=== PATIENT | female | born 2000 | race Caucasian/White ===

== ENCOUNTER 2022-02-21 14:00 | Emergency (ER) | payer MEDICAID ==
[~2022-02-21] VITALS: Ht 157.5 cm; Wt 59.5 kg
[2022-02-21 14:12] VITALS: BP 104/68
[2022-02-21] MEDS ORDERED: PENICILLIN G BENZATHINE 2,400,000 UNIT/4 ML SYRINGE IM ONE (15:05)
== END 2022-02-21 15:53 | disposition home or self-care (01) ==
LOC: ER 14:02
DX: J02.9 Acute pharyngitis, unspecified (principal)
CPT/HCPCS: 87081; 87880; 96372; 99283; J0561

== ENCOUNTER 2023-04-26 18:06 | Emergency (ER) | payer MEDICAID ==
[~2023-04-26] VITALS: Ht 157.5 cm; Wt 56.0 kg
[2023-04-26 18:37] VITALS: BP 121/75; PULSE 77; RESP 18; TEMP 97.7; O2SAT 99
[2023-04-26] MEDS ORDERED: HYDROcodone/acetaminophen 10/325mg tab PO ONE (19:35)
[2023-04-26] MEDS ORDERED: gabapentin 300mg capsule PO ONE (19:35)
[2023-04-26] MEDS ORDERED: IBUP-1986 PO (19:37)
[2023-04-26] MEDS ORDERED: GABA300C PO (19:37)
== END 2023-04-26 20:00 | disposition home or self-care (01) ==
LOC: ER 18:07
DX: K08.89 Other specified disorders of teeth and supporting structures (principal); K90.49 Malabsorption due to intolerance, not elsewhere classified; R68.84 Jaw pain
CPT/HCPCS: 99283

== ENCOUNTER 2025-02-05 14:41 | Emergency (ER) | payer MEDICAID ==
[~2025-02-05] VITALS: Ht 157.5 cm; Wt 56.7 kg
[~2025-02-05 14:41] MED LIST: GABA300C PO; IBUP-1986 PO
[2025-02-05 14:49] VITALS: BP 119/81; PULSE 84; RESP 15; TEMP 98.5; O2SAT 98
--- NOTE | 2025-02-05 15:01 | Physician Documentation ---
History of Present Illness ~ Chief Complaint: Breast pain Stated Complaint: BREAST PAIN Time Seen by MD: 14:54 Primary Medical Doctor: [facility] The patient is Today with complaints of pain and induration of her left breast on the lateral inferior portion. Patient states she is but has been trying to wean down and will be shortly weaning her infant off. Patient de nies any fevers or chills. She has no new or other concern or complaint at this time. She states she has had mastitis in the past requiring oral antibiotics. Tetanus within 5 years?: Yes Medication Reconciliation Allergies: Coded Allergies: No Known Allergies (Unverified , 02/21/22) Scheduled Gabapentin (Neurontin), 1 CAP PO Q8H Ibuprofen (Ibuprofen), 1 TAB PO Q8H Past Medical History Past Medical History: No Pertinent History Past Surgical History: no surgical history Alcohol Use: None Drug Use: none Review of Systems Constitutional: Denies: chills, fever, weakness Eyes: Denies: pain, blurred vision ENT: Denies: ear pain, nose pain, throat pain, mouth pain Respiratory: Denies: cough, shortness of breath Cardiovascular: Denies: chest pain, palpitations Gastrointestinal: Denies: abdominal pain, nausea, vomiting Genitourinary: Denies: burning, dysuria Female Genitalia: Denies: vaginal discharge, pelvic pain Neurological: Denies: headache, dizziness Musculoskeletal: Denies: pain, swelling Integumentary: Denies: rash, lesions Allergic/Immunologic: Denies: hives, itching Hematologic/Lymphatic: Denies: no symptoms reported Psychiatric: Denies: depression, anxiety Physical Exam Vital Signs: Temperature: 98.5, Source: Temporal, Heart Rate: 84, Respiratory Rate: 15, BP: 119/81, Pulse Oximetry: 98, Weight: 56.700 General Appearance General: Awake and Alert, no acute distress. HEENT: Conjunctiva pink, Sclera clear, Mucus Membranes moist. Neck: Supple without masses and tenderness. Resp: Unlabored. Lungs clear to auscultation bilaterally. Heart: Regular Rate and rhythm, normal S1 and S2 without murmur, rub or gallop. Breast: Patient on exam does have induration and mild erythema and significant tenderness to palpation to the lateral left breast. Extremities: No cyanosis,clubbing or edema. Skin: Warm and Dry. Progress Results/Orders Results/Orders Vital Signs 02/05/25 14:49 Temp 98.5 Pulse 84 Resp 15 B/P (MAP) 119/81 Pulse Ox 98 Medical Decision Making Findings The patient is Today with complaints of pain and induration of her left breast on the lateral inferior portion. Patient states she is but has been trying to wean down and will be shortly weaning her infant off. Patient denies any fevers or chills. She has no new or other concern or complaint at this time. She states she has had mastitis in the past requiring oral antibiotics. Patient was strongly advised to pump and dump as well as continue increase and pumping dump the rest as much as possible over the next 3-7 days. Patient will also be given prescription of Bactrim DS one tab twice a day for 10 days to be taken by mouth as prescribed. Dose of Bactrim given in the ED today. Patient will follow up with primary care in 2-5 days if no better as needed sooner. Return to ED with any worsening, concerning or changing symp toms. Departure Disposition: HOME / SELF CARE / HOMELESS Impression: Primary Impression: Mastitis Condition: Stable Discharge Instructions: Mastitis Additional Instructions: Patient was strongly advised to pump and dump as well as continue increase and pumping dump the rest as much as possible over the next 3-7 days. Patient will also be given prescription of Bactrim DS one tab twice a day for 10 days to be taken by mouth as prescribed. Dose of Bactrim given in the ED today. Patient will follow up with primary care in 2-5 days if no better as needed sooner. Return to ED with any worsening, concerning or changing symptoms. Referrals: NO PRIMARY CARE PROVIDER (PCP) Prescriptions Sulfamethoxazole/Trimethoprim (Bactrim Ds Tablet) 800 Mg-160 Mg Tablet 1 TAB PO Q12H for 10 Days, #20 TAB Prov: KIRTI DE LA PAZ 02/05/25 Signature Scribe Signature: No scribe Attestation: No scribe KIRTI DE LA PAZ February 05, 2025 15:01
[2025-02-05] MEDS ORDERED: SULF1TAB49 PO (15:06)
[2025-02-05] MEDS: sulfamethoxazole/trimethoprim DS (800/160mg) tablet PO ONE (15:30)
== END 2025-02-05 15:32 | disposition home or self-care (01) ==
LOC: ER 14:42
DX: N61.0 Mastitis without abscess (principal); Z79.899 Other long term (current) drug therapy
CPT/HCPCS: 99283

== ENCOUNTER 2025-06-06 15:02 | Emergency (ER) | payer MEDICAID, OTHER ==
[~2025-06-06] VITALS: Ht 154.9 cm; Wt 54.5 kg
[2025-06-06 15:10] VITALS: BP 111/68; PULSE 85; RESP 16; TEMP 98.4; O2SAT 99
--- NOTE | 2025-06-06 16:17 | RADIOLOGY REPORT ---
EXAM: DI ANKLE, COMPLETE(3VW MIN) INDICATION: Swelling, pain TECHNIQUE: 3 views of the right ankle COMPARISON: None FINDINGS/IMPRESSION: No radiographic evidence of an acute osseous abnormality. There is no acute fracture, osseous malalignment, or aggressive focal osseous lesion. Lateral malleolar soft tissue swelling. No widening of the distal tibial fibular interval to suggest syndesmotic injury.
[2025-06-06] MEDS ORDERED: CEPH-585 PO (16:38)
[2025-06-06] MEDS: ibuprofen tablet 400 MG TABLET PO ONE (16:38)
--- NOTE | 2025-06-06 16:39 | Physician Documentation ---
History of Present Illness ~ Chief Complaint: Ankle pain Stated Complaint: SWOLLEN R ANKLE Time Seen by MD: 15:12 Primary Medical Doctor: [facility] HPI Patient has a 24-year-old female that presents to the emergency department for swelling of the right ankle acutely. 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 Patient denies any injury does not know what happened reports that she woke up like that and it became progressively worse while here at work. Tetanus witin 5 years: Yes Medication Reconciliation Allergies: Coded Allergies: No Known Allergies (Unverified , 06/06/25) Scheduled Gabapentin (Neurontin), 1 CAP PO Q8H Ibuprofen (Ibuprofen), 1 TAB PO Q8H Past Medical History Past Medical History: No Pertinent History Past Surgical History: no surgical history Alcohol Use: None Drug Use: none Review of Systems ROS As stated above in the HPI, otherwise all systems are reviewed and negative. Physical Exam Vital Signs: Temperature: 98.4, Source: Temporal, Heart Rate: 85, Respiratory Rate: 16, BP: 111/68, Pulse Oximetry: 99, Weight: 54.550 Oxygen Flow Rate: 0 Physical Exam VITALS: Reviewed and as above. GENERAL: Alert, no apparent distress. HEENT: Normocephalic, atraumatic, PERRL, EOMI, dry mucosa, no erythema RESPIRATORY: Lungs clear, normal breath sounds, no respiratory distress. CHEST: No accessory muscle use, no retractions CV: Regular rate, rhythm, no edema, no murmur, No: JVD GI: Soft, non-tender, bowels sounds present, no rebound, guarding, or rigidity BACK: No CVA tenderness, or swelling MUSCULOSKELETAL No deformities, no edema, tender with range of motion. SKIN: Warm and dry, erythema and swelling noted to the lateral aspect of the right ankle. NEURO: Oriented x4, No motor or sensory deficit PSYCH: Normal mood and affect, no agitation Progress Results/Orders Results/Orders Orders - LUPE CROSSP Ankle, Complete(3vw Min) (06/06/25 15:47) General Nursing Order (06/06/25 16:11) Completed Orders - LUPE CROSS [employer] Ankle, Complete(3vw Min) (06/06/25 15:47) Vital Signs 06/06/25 15:10 Temp 98.4 Pulse 85 Resp 16 B/P (MAP) 111/68 Pulse Ox 99 O2 Flow Rate 0 Medical Decision Making Findings This patient presents with initial presentation of local erythema, warmth, swelling concerning for cellulitis. Sensitivity/pain to light touch around the erythematous area. No lymphangitic spread visible and no fluid pockets or fluctuance concerning for abscess noted. Low concern for osteomyelitis or DVT. No immune compromise, bullae, pain out of proportion, or rapid progression concerning for necrotizing fasciitis. Patient to be discharged home with keflex with follow up with their PMD. Patient will follow up with her primary care provider. Patient will return to the emergency department with a worsening or recurrent symptoms i.e. increased swelling increased pain lymphatic spread i nability to ambulate on that foot fevers chills or any other concerning symptoms that we discussed here today. This is currently so Keflex was the most appropriate choice at this time. General Diff Dx:Considerations: Include: Abrasion, Contusion, Fracture, Hematoma, Laceration, Malunion, Neurovascular injury, Open fracture, Sprain, Ulcer, Other Ankle Diff Dx:Considerations: Include: Abrasion, Arthritis, Contusion, DJD, Fracture-metatarsal, Fracture-fibula, Fracture-tarsal, Fracture-tibia, Gout, Hematoma, Laceration, Malunion, Neurovascular injury, Nonunion, Open fracture, Osteomyelitis, Rheumatoid arthritis, Sprain, Septic, Ulcer, Other Departure Disposition: 01 HOME / SELF CARE / HOMELESS Impression: Primary Impression: Abscess Additional Impressions: Bug bite Edema Pain Discharge Instructions: Abscess, Care After Additional Instructions: This patient presents with initial presentation of local erythema, warmth, swelling concerning for cellulitis. Sensitivity/pain to light touch around the erythematous area. No lymphangitic spread visible and no fluid pockets or fluctuance concerning for abscess noted. Low concern for osteomyelitis or DVT. No immune compromise, bullae, pain out of proportion, or rapid progression concerning for necrotizing fasciitis. Patient to be discharged home with keflex with follow up with their PMD. Patient will follow up with her primary care provider. Patient will return to the emergency department with a worsening or recurrent symptoms i.e. increased swelling increased pain lymphatic spread inability to ambulate on that foot fevers chills or any other concerning symptoms that we discussed here today. This is currently so Keflex was the most appropriate choice at this time. Referrals: NO PRIMARY CARE PROVIDER (PCP) Prescriptions Cephalexin*Monohydrate* (Keflex*) 500 Mg Capsule 1 CAP PO QID for 7 Days, #28 CAP Prov: LUPE CROSS 06/06/25 Education Educated: Patient Educated regarding: diagnosis, treatment, need for follow up Signature Scribe Signature: A Attestation: Scribed for Lupe Cross by RAJI Suarez . 06/06/25 16:39 LUPE CROSS Jun 06, 2025 16:39
== END 2025-06-06 16:46 | disposition home or self-care (01) ==
LOC: ER 15:02
DX: L02.415 Cutaneous abscess of right lower limb (principal); R60.9 Edema, unspecified; Z79.899 Other long term (current) drug therapy; W57.XXXA Bitten or stung by nonvenomous insect and other nonvenomous arthropods, initial encounter; Y93.89 Activity, other specified; Y92.89 Other specified places as the place of occurrence of the external cause; Y99.8 Other external cause status
CPT/HCPCS: 73610; 99284

== ENCOUNTER 2025-08-15 12:59 | Emergency (ER) | payer OTHER ==
[~2025-08-15] VITALS: Ht 154.9 cm; Wt 59.1 kg
[2025-08-15 13:03] VITALS: BP 112/75; PULSE 84; RESP 18; TEMP 97.2; O2SAT 97
--- NOTE | 2025-08-15 14:13 | RADIOLOGY REPORT ---
DI LUMBAR SPINE LIMITED, HISTORY: Fall COMPARISON: None TECHNICAL DATA: Frontal and lateral views were obtained of the lumbar spine. FINDINGS: There are 5 lumbar type vertebral bodies. Lumbar curvature is within normal limits. There is no spondylolisthesis. Vertebral body heights are maintained. Disk heights are normal. The facet joints appear normal. The sacroiliac joints are symmetric. Paraspinal soft tissues are within normal limits. IMPRESSION: No acute fracture or dislocation of the lumbar spine.
--- NOTE | 2025-08-15 14:13 | RADIOLOGY REPORT ---
DI HIP UNILATERAL 2-3 VIEWS, INDICATION: Fall LEFT TECHNICAL DATA: Frontal and frog lateral views were obtained of the left hip.] COMPARISON: None FINDINGS: The left hip is normally located. The left hip joint is normally maintained with no marginal osteophytes. No left hip fracture is identified. The left sacroiliac joint appears normal. IMPRESSION: Normal radiographs of the left hip.
--- NOTE | 2025-08-15 14:14 | RADIOLOGY REPORT ---
DI SACRUM COCCYX HISTORY: Fall TECHNICAL DATA: Frontal, Demarco and lateral views were obtained of the sacrum and coccyx. COMPARISON: None FINDINGS: No fracture or focal abnormality is demonstrated involving the sacrum. The sacral neural foramina appear symmetric. There is no distraction or displacement of the coccygeal segments. The sacroiliac joints appear normal. IMPRESSION: Normal radiographs of the sacrum and coccyx.
--- NOTE | 2025-08-15 14:19 | Physician Documentation ---
History of Present Illness ~ Chief Complaint: Mechanical Fall Stated Complaint: FALL/HIP PAIN Time Seen by MD: 13:15 Primary Medical Doctor: [facility] HPI 24-year-old female who had a mechanical fall down 10 steps last night landing on her buttocks and left hip. Was at work today due to pain that resolved with anti-inflammatory medicine she presents to the emergency department for e valuation. Has not obvious antalgic gait. Reports coccyx fracture several months ago. Tetanus within 5 Years?: Yes Medication Reconciliation Allergies: Coded Allergies: No Known Allergies (Unverified , 08/15/25) Scheduled Gabapentin (Neurontin), 1 CAP PO Q8H Ibuprofen (Ibuprofen), 1 TAB PO Q8H Past Medical History Past Medical History: No Pertinent History Past Surgical History: no surgical history Alcohol Use: None Drug Use: none Review of Systems All Other Systems at this time: Reviewed and Negative Constitutional: Reports: see HPI Musculoskeletal: Reports: see HPI, pain Physical Exam Vital Signs: RN Vital Signs have been reviewed: Yes, Temperature: 97.2, Source: Temporal, Heart Rate: 84, Respiratory Rate: 18, BP: 112/75, Pulse Oximetry: 97, Weight: 59.090 Oxygen Flow Rate: 0 General Appearance: alert, WD/WN, moderate distress Head: no evidence of injury Face: normal Eye Lid: normal inspection Pupils/EOM/Fundus: PERRLA Respiratory: no respiratory distress Gastrointestinal: non-tender Back: muscle spasm, tender; No: vertebral tenderness Back Bilateral lower lumbar paraspinous tenderness to palpation. Skin: warm/dry Neurologic: oriented x4 Motor / Sensory: no motor deficit, no sensory deficit Thoughts/Hallucinations: normal thought pattern Affect: appropriate Progress Results/Orders Results/Orders Orders - RAIMUNDO TALAVERA PAC Sacrum & Coccyx (08/15/25 14:05) Lumbar Spine Limited (08/15/25 14:05) Hip Unilateral 2-3 Views (08/15/25 14:05) Completed Orders - RAIMUNDO TALAVERA PAC Sacrum & Coccyx (08/15/25 14:05) Lumbar Spine Limited (08/15/25 14:05) Lidocaine 5% Patch (Lidoderm 5% Patch) (08/16/25 08:00) Acetaminophen 325mg Tablet (Tylenol Tabl (08/15/25 13:25) Hip Unilateral 2-3 Views (08/15/25 14:05) Lidocaine 5% Patch (Lidoderm 5% Patch) (08/15/25 13:50) Medications Received in ER Medications (Trade) Dose Ordered Sig/Curtis Route PRN Reason Start Time Stop Time Status Last Admin Dose Admin (Tylenol tablet) 650 mg ONCE ONCE PO 08/15/25 13:25 08/15/25 13:26 DC 08/15/25 14:12 650 MG (Lidoderm 5% Patch) 1 patch ONCE ONCE TP 08/15/25 13:50 08/15/25 13:51 DC 08/15/25 14:12 1 PATCH Vital Signs 08/15/25 13:03 Temp 97.2 Pulse 84 Resp 18 B/P (MAP) 112/75 Pulse Ox 97 O2 Flow Rate 0 Medical Decision Making Additional information obtaine: N/A Findings Examination and history consistent with soft tissue and bone contusion from mechanical fall down 10 steps. X-rays obtained in the emergency department reassuring for no fracture dislocation. Examination consistent with coccydynia requiring inflatable donut for comfort and support and Tylenol ibuprofen as needed. Patient will be need and time off work for which I have provided for her. She is grossly neurologically intact and safely discharged from the emergency department. Differential Dx:Considerations: Include: Closed head injury, Cardiac injury, Fracture(s), Intraabdominal injury, Pneumothorax, Cerebral contusion, Pulmonary contusion, Spine injury, Tracheal injury, Urological injury, Vascular injury, Abrasion(s), Contusion(s), Foreign body(s), Hematoma(s), Laceration(s), Encephalopathy, Other Departure Disposition: HOME / SELF CARE / HOMELESS Impression: Primary Impression: Coccydynia Condition: Improved Additional Instructions: Your x-ray imaging obtained in the emergency department today are reassuring for no fracture. Please take Ibuprofen and/or Tylenol for discomfort. Please use inflatable donut for comfort and support. I have provided you a work note until Saturday. Return to the emergency department as needed. Referrals: NO PRIMARY CARE PROVIDER (PCP) Education Educated: Patient Educated regarding: diagnosis, treatment, prognosis, need for follow up Signature Scribe Signature: . Attestation: . RAIMUNDO TALAVERA PAC Aug 15, 2025 14:19
== END 2025-08-15 14:28 | disposition home or self-care (01) ==
LOC: ER 13:00
DX: M53.3 Sacrococcygeal disorders, not elsewhere classified (principal); W10.9XXA Fall (on) (from) unspecified stairs and steps, initial encounter
CPT/HCPCS: 72100; 72220; 73502; 99284